=== PATIENT | male | born 1985 | race Caucasian/White ===

== ENCOUNTER → 2018-08-16 | Outpatient (CLI) | payer OTHER ==
[~2018-08-16] MED LIST: AUGMENTIN 875875 M1 PO; IBUPROFEN 800800 M1 PO; NOHOMEMEDICATIONS
== END ==
LOC: CAT 07:48
DX: Z13.6 Encounter for screening for cardiovascular disorders (principal); E78.00 Pure hypercholesterolemia, unspecified; Z82.49 Family history of ischemic heart disease and other diseases of the circulatory system